=== PATIENT | male | born 1980 | race Caucasian/White ===

== ENCOUNTER 2023-10-30 10:42 | Outpatient (CLI) | payer BC | END 2023-10-30 10:43 | disposition home or self-care (01) | LOC: MRI 10:42 | PROVIDERS: ATTEND Psychiatry & Neurology Neurology | DX: R56.9 Unspecified convulsions (principal) | CPT/HCPCS: 70553; 76377 ==

== ENCOUNTER 2023-11-04 10:12 | Outpatient (CLI) | payer BC | END 2023-11-04 10:13 | disposition home or self-care (01) | LOC: EEG 10:12 | PROVIDERS: ATTEND Psychiatry & Neurology Neurology | DX: R56.9 Unspecified convulsions (principal) | CPT/HCPCS: 95816 ==